=== PATIENT | female | born 1950 | race Caucasian/White ===

== ENCOUNTER 2017-09-12 17:15 | Emergency (ER) | payer SELFPAY ==
[~2017-09-12] VITALS: Ht 156.2 cm; Wt 73.5 kg
[2017-09-12 17:20] VITALS: TEMP 36.9; Ht 156.2 cm; Wt 73.5 kg
[2017-09-12] MEDS ORDERED: MoRPHine SULFATE 10 MG/ML CARP/VIAL IM STA (17:59)
--- NOTE | 2017-09-12 18:15 | DIAGNOSTIC IMAGING REPORT ---
L SHOULDER MIN 2 VIEWS ROUTINE CLINICAL HISTORY: Left shoulder pain status post fall. COMPARISON: None FINDINGS: There is an age indeterminate impacted mildly displaced left humeral neck fracture. Alignment of the left acromioclavicular and glenohumeral joints is anatomic. IMPRESSION: Impacted mildly displaced left humeral neck fracture which is age indeterminate by radiography. Electronically signed by: Jc Zavala M.D. 09/12/2017 6:14 PM Dictated Date/Time: 09/12/2017 6:12 PM
--- NOTE | 2017-09-12 19:53 | DIAGNOSTIC IMAGING REPORT ---
L SHOULDER MIN 2 VIEWS ROUTINE CLINICAL HISTORY: L shoulder relocation COMPARISON: Left shoulder radiographs performed earlier today. FINDINGS: There is an impacted left humeral neck fracture. Alignment of the left glenohumeral joint is anatomic. Alignment of the left acromioclavicular joint is anatomic. IMPRESSION: Impacted left humeral neck fracture which is likely acute. Anatomic alignment of left glenohumeral joint. Electronically signed by: Jc Zavala M.D. 09/12/2017 7:52 PM Dictated Date/Time: 09/12/2017 7:50 PM
--- NOTE | 2017-09-12 20:45 | DIAGNOSTIC IMAGING REPORT ---
L UPPER EXTREMITY WITHOUT CLINICAL HISTORY: L shoulder pain s/p fall COMPARISON STUDY: Left shoulder radiographs performed earlier today. FINDINGS: Note is made of an acute moderately impacted displaced left humeral neck fracture that extends into the inferior aspect of the humeral head. Alignment of the left acromioclavicular and glenohumeral joints is anatomic. There is suspected elevation of the left hemidiaphragm. No additional fractures are identified. IMPRESSION: 1. Acute impacted comminuted mildly displaced left humeral neck fracture. 2. Anatomic alignment of the left acromioclavicular and glenohumeral joints. Electronically signed by: Jc Zavala M.D. 09/12/2017 8:44 PM Dictated Date/Time: 09/12/2017 8:41 PM
[2017-09-12] MEDS ORDERED: OXYCODONE IR HOME PACK PO STA (21:00)
[2017-09-12] MEDS ORDERED: OXYC1TAB3 PO (21:02)
--- NOTE | 2017-09-12 21:03 | EMERGENCY ROOM VISIT NOTE ---
History First contact with patient: 17:24 Chief Complaint: SHOULDER PAIN Stated Complaint: SHOULDER PAIN, LEFT History of Present Illness The patient is a 66 year old female who presents to the Emergency Room via private vehicle accompanied by female with complaints of "shoulder pain, left ankle. 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 She states she fell forward and injured her left shoulder. She denies loss of consciousness or striking her head. She notes pain rated as a 3/10 in the left shoulder joint. She is right-handed. Review of Systems A complete 6-point Review of Systems was discussed with the patient, with pertinent positives and negatives listed in the History of Present Illness. All remaining Review of Systems questions can be considered negative unless otherwise specified. Past Medical/Surgical History No pertinent Family History No pertinent Social History Smoking Status: Never Smoker Social History: Pt. is from [place] Current/Historical Medications Scheduled PRN Oxycodone Ir (Roxicodone Ir), 1-2 TAB PO Q4H PRN for Pain Allergies Coded Allergies: No Known Allergies (Unverified , 09/12/17) Physical Exam Vital Signs Date Time Temp Pulse Resp B/P (MAP) Pulse Ox O2 Delivery O2 Flow Rate FiO2 09/12/17 21:27 80 20 186/97 97 09/12/17 17:20 36.9 92 17 177/94 95 Room Air Physical Exam VITAL SIGNS - Vital signs and nursing notes were reviewed. Stable. Hypertensive. GENERAL -66-year-old female appearing her stated age who is in no acute distress. Communicates well with provider and answers questions appropriately. SKIN - Without rashes. No petechial rashes. No breaks in the integument. HEAD - NC/AT. NECK - no C-spine tenderness. LUNGS - Chest wall symmetric without accessory muscle use, intercostals retractions, or central cyanosis. Normal vesicular breath sounds CTA B/L. No wheezes, rales, or rhonchi appreciated. CARDIAC - RRR with S1/S2. No murmur, rubs, or gallops appreciated. EXTREMITIES - patient upon examination is guarding the left shoulder with the arm flexed at 90 at the elbow with the arm across the abdomen. To examine, she is tender overlying the superior portion of the left humerus at the location of the left shoulder joint. There is decreased range of motion of this region secondary to pain. Upon palpation, the glenohumeral joint appears to be slightly displaced anteriorly in comparison to the right. Examination is consistent with such. She is neurovascularly intact in this region. +5/5 strength noted in UE/LE bilaterally. Medical Decision & Procedures ER Provider Diagnostic Interpretation: L SHOULDER MIN 2 VIEWS ROUTINE CLINICAL HISTORY: Left shoulder pain status post fall. COMPARISON: None FINDINGS: There is an age indeterminate impacted mildly displaced left humeral neck fracture. Alignment of the left acromioclavicular and glenohumeral joints is anatomic. IMPRESSION: Impacted mildly displaced left humeral neck fracture which is age indeterminate by radiography. Electronically signed by: Jc Zavala M.D. 09/12/2017 6:14 PM Dictated Date/Time: 09/12/2017 6:12 PM L SHOULDER MIN 2 VIEWS ROUTINE CLINICAL HISTORY: L shoulder relocation COMPARISON: Left shoulder radiographs performed earlier today. FINDINGS: There is an impacted left humeral neck fracture. Alignment of the left glenohumeral joint is anatomic. Alignment of the left acromioclavicular joint is anatomic. IMPRESSION: Impacted left humeral neck fracture which is likely acute. Anatomic alignment of left glenohumeral joint. Electronically signed by: Jc Zavala M.D. 09/12/2017 7:52 PM Dictated Date/Time: 09/12/2017 7:50 PM L UPPER EXTREMITY WITHOUT CLINICAL HISTORY: L shoulder pain s/p fall COMPARISON STUDY: Left shoulder radiographs performed earlier today. FINDINGS: Note is made of an acute moderately impacted displaced left humeral neck fracture that extends into the inferior aspect of the humeral head. Alignment of the left acromioclavicular and glenohumeral joints is anatomic. There is suspected elevation of the left hemidiaphragm. No additional fractures are identified. IMPRESSION: 1. Acute impacted comminuted mildly displaced left humeral neck fracture. 2. Anatomic alignment of the left acromioclavicular and glenohumeral joints. Electronically signed by: Jc Zavala M.D. 09/12/2017 8:44 PM Dictated Date/Time: 09/12/2017 8:41 PM Medications Administered Medications (Trade) Dose Ordered Sig/Bart Route Start Time Stop Time Status Last Admin Dose Admin Morphine Sulfate (MoRPHine SULFATE INJ) 8 mg NOW STAT IM 09/12/17 17:59 09/12/17 18:00 DC 09/12/17 18:16 8 MG Oxycodone HCl (Roxicodone Immediate Rel 5MG Home Pack) 1 homepack UD STAT PO 09/12/17 21:00 09/12/17 21:02 DC 09/12/17 21:00 1 HOMEPACK Medical Decision Patient was seen and evaluated as above. She presents to us today status post fall with left arm pain. Clinically she has a minor left anterior shoulder dislocation on exam as the humeral head is palpable more anteriorly than the right. Initial x-rays on the initial view depict what appears to be a slight dislocation. I feel that her clinical presentation yields more evidence of a dislocation rather than the x-ray. The small fracture was very subtle, and given the patient's clinical presentation elected to try and gently apply inferior traction to realign the shoulder better. She was given 8 mg of morphine IM for her pain, gentle traction was given to the elbow region to inferiorly retract the humerus. Patient tolerated this well. She noted that she felt better after such and reexamination clinically reveals that the patient 's alignment of the glenohumeral joint is more appropriate. Care was taken when providing inferior traction to not disrupt/further injure the existing fracture. The x-ray was obtained first to reveal any obvious fracture. A subtle fracture was noted. Repeat x-ray was obtained, and the small fracture that was present persists. Because of the injury I will pursue a CT scan of the patient's shoulder after discussing the case with the attending physician to ensure that no dislocation was present. Again, it was more of a clinical assessment that raised the concern for potential dislocation of the joint. CT scan results as above. The patient notes that she will follow back home in [place] with orthopedics. Her pain is well controlled here. She is neurovascularly intact post-splinting with the arm sling. She was given a copy of her imaging here. She was also given our phone number in the event that she has difficulty following up. She is to call them first thing Thursday morning at the orthopedic office to schedule follow-up. She'll be given oxycodone for pain. No red flags the [place] drug monitoring system. The patient was educated upon management, had questions answered prior to discharge, and was discharged home in good condition. Case was discussed with the attending physician I attest that I have personally reviewed the patient medication list. The patient's blood pressure was reviewed and was found to be elevated. She is to follow up with family doctor for recheck. In the evaluation and treatment of this patient, the following differential diagnoses were considered: Shoulder Contusion, Shoulder Fracture, Shoulder Dislocation, Thoracic Outlet Syndrome, Adhesive Capsulitis, Rotator Cuff Tear, Proximal Clavicle Head Fracture, Apical Pneumonia, Pneumothorax, Hemothorax, or TB. Impression Primary Impression: Fracture of neck of humerus Additional Impression: Fall Departure Information Dispostion Home / Self-Care Condition GOOD Prescriptions Oxycodone Ir (Roxicodone Ir) 5 Mg Tab 1-2 TAB PO Q4H Y for Pain, #15 TAB For Initial Treatment Prov: Jacob Farias PA-C 09/12/17 Referrals No Doctor, Assigned (PCP) Patient Instructions My [facility] Additional Instructions You have been treated in the Emergency Department for Shoulder Pain. You have received pain medicine in the emergency department which impairs your ability to operate a vehicle. It is illegal for you to drive after receiving these medicines. You have been prescribed Oxy IR to be used for pain control. This is a narcotic medication. You cannot drive or consume alcohol while on this medicine. This medicine should only be used for pain that cannot be controlled with over-the- counter pain medicines. For pain control, you can use the following [id number] medicines: - Regular strength (325mg/tab) Tylenol (acetaminophen) 2 tabs every 4-6 hours as needed. Do not exceed 12 tablets in a 24 hour period. Avoid taking more than 3 grams (3000 mg) of Tylenol per day. This includes any other sources of acetaminophen you may take on a regular basis. - Regular strength (200 mg/tab) Advil (ibuprofen) 1-2 tabs every 4-6 hours as needed. Do not exceed a dose of 3200 mg per day. If this is a recent injury (<24 hrs), ice can be applied to the area of pain for the first 3 days to help decrease pain and inflammation. Please follow up with orthopedic surgeon back home as we discussed. Keep the shoulder brace/sling in place until evaluated by Orthopedics. Continue to perform range of motion exercises several times per day to help prevent the development of a "frozen shoulder". Return to the Emergency Department if your current symptoms worsen despite treatment course outlined above, or if you develop any of the following symptoms : intractable pain despite aforementioned treatment course or new onset of numbness or tingling of the arm. Problem Qualifiers
[2017-09-12 21:27] VITALS: BP 186/97; PULSE 80; O2SAT 97
== END 2017-09-12 21:29 | disposition home or self-care (01) ==
LOC: C.EDB 17:18 → C.EDD 21:29
DX: S42.292A Other displaced fracture of upper end of left humerus, initial encounter for closed fracture (principal); W18.09XA Striking against other object with subsequent fall, initial encounter